=== PATIENT | male | born 1960 | race Caucasian/White ===

== ENCOUNTER → 2017-05-31 | Outpatient (CLI) | payer BC, OTHER ==
[~2017-05-31] MED LIST: CYCL10TA6 PO; NXM/40 PO
--- NOTE | 2017-05-31 12:28 | DIAGNOSTIC IMAGING REPORT ---
(RENAL)RETROPERITONEA COMP HISTORY: Renal mass RENAL NEOPLASM COMPARISON: 12/16/2015 FINDINGS: Right kidney: Maximum dimension 11.6 cm. Normal corticomedullary differentiation and cortical thickness. Left kidney: Maximum dimension 13.4 cm. No change in the 1 cm complex cystic nodule of the mid pole left kidney. Bladder: No bladder wall thickening. The bilateral ureteral jets were identified. IMPRESSION: No change in the 1 cm complex cystic nodule mid pole left kidney. The above report was generated using voice recognition software. It may contain grammatical, syntax or spelling errors. Electronically signed by: Qamar Montemayor M.D. 05/31/2017 12:27 PM Dictated Date/Time: 05/31/2017 12:24 PM
== END | disposition home or self-care (01) ==
LOC: C.ULTR 11:54
PROVIDERS: ATTEND Urology
DX: D49.519 Neoplasm of unspecified behavior of unspecified kidney (principal)